=== PATIENT | male | born 1965 | race Caucasian/White ===

== ENCOUNTER 2017-01-06 21:36 | Emergency (ER) | payer OTHER ==
[~2017-01-06] VITALS: Ht 182.9 cm; Wt 92.9 kg
[2017-01-07] MEDS ORDERED: KEFLEX500 MG PO (00:40)
[2017-01-07] MEDS ORDERED: ULTRACET1 TABLET PO (00:40)
[2017-01-07 00:51] VITALS: BP 137/94
== END 2017-01-07 00:56 | disposition home or self-care (01) ==
LOC: RME 21:36 → EME 21:36 → RME 01-07 00:56
PROC: 0HQEXZZ Repair Left Lower Arm Skin, External Approach (ICD-10-PCS; principal; 2017-01-07)
PROC: 2W3DX1Z Immobilization of Left Lower Arm using Splint (ICD-10-PCS; 2017-01-07)
PROC: 3E0234Z Introduction of Serum, Toxoid and Vaccine into Muscle, Percutaneous Approach (ICD-10-PCS; 2017-01-07)
DX: S62.162B Displaced fracture of pisiform, left wrist, initial encounter for open fracture (principal); S66.922A Laceration of unspecified muscle, fascia and tendon at wrist and hand level, left hand, initial encounter; W29.3XXA Contact with powered garden and outdoor hand tools and machinery, initial encounter; Z23 Encounter for immunization
CPT/HCPCS: 73110; 99281; 99284; J0690